=== PATIENT | male | born 1980 | race Caucasian/White ===

== ENCOUNTER 2019-08-01 13:39 | Outpatient (CLI) | payer BC, SELFPAY ==
--- NOTE | ~2019-08-01 | CT_ITS ---
CORRECTED REPORT Description changed to CT soft tissue neck wo con [id number] EXAMINATION: CT soft tissue neck wo con DATE: 08/01/2019 14:23 INDICATION: Localized swelling, mass, or lump unspecified. TECHNIQUE: Computed tomography (CT) of the neck was performed without intravenous contrast. Automated exposure control and iterative reconstruction technique were employed. The dose-length product was 494.35 mGy-cm. COMPARISON: None FINDINGS: Calcified mediastinal lymph nodes are consistent with old granulomatous disease. There are no pathologically enlarged lymph nodes. The parotid glands are larger than average bilaterally, likely a normal variant. No abnormal mass or inflammation. There is no sialolith. The paranasal sinuses are clear. The mastoid air cells are normal. There is mild cervical spondylosis. IMPRESSION: 1. No abnormal mass or lymphadenopathy. Reviewed, dictated and finalized at location A. MTDD
== END 2019-08-01 13:40 | disposition home or self-care (01) ==
LOC: ANHIMG 13:45
PROVIDERS: PCP Internal Medicine; Visit Provider Nurse Practitioner
DX: R22.9 Localized swelling, mass and lump, unspecified (principal)
CPT/HCPCS: 70490; 71250

== ENCOUNTER 2019-08-01 13:50 | Outpatient (CLI) | payer BC, SELFPAY ==
--- NOTE | ~2019-08-01 | CT_ITS ---
EXAMINATION: CT abdomen pelvis wo con DATE: 08/01/2019 14:22 INDICATION: Chronic prostatitis TECHNIQUE: Computed tomography (CT) of the abdomen and pelvis was performed without intravenous contr ast. The dose-length product was 607.40 mGy-cm. Automated exposure control and iterative reconstructi on technique were employed. COMPARISON: None. FINDINGS: Lung bases are unremarkable. No significant pleural or pericardial effusion. There are mult iple enlarged mesenteric and retroperitoneal lymph nodes. The liver and, pancreas, adrenal glands and kidneys are unremarkable. Spleen is enlarged. Prostate gland is enlarged. Bladder is normal. Nonobst ructive bowel gas pattern. Diverticulosis without evidence for diverticulitis. Normal appendix. No fr ee air or free fluid. Mild lower lumbar spondylosis. No acute osseous abnormality. IMPRESSION: 1. Enlarged mesenteric and retroperitoneal lymphadenopathy, nonspecific. These may be reactive althou gh other considerations such as lymphoma or metastatic disease should be considered. 2: Splenomegaly. 3: Enlarged prostate gland. Reviewed, dictated and finalized at location A. IMPRESSION: 1. Enlarged mesenteric and retroperitoneal lymphadenopathy, nonspecific. These may be reactive although other considerations such as lymphoma or metastatic di sease should be considered. 2: Splenomegaly. 3: Enlarged prostate gland.
== END 2019-08-01 13:51 | disposition home or self-care (01) ==
LOC: ANHIMG 13:52
PROVIDERS: PCP Internal Medicine; Visit Provider Urology
DX: N41.1 Chronic prostatitis (principal); R59.0 Localized enlarged lymph nodes; R16.1 Splenomegaly, not elsewhere classified; N40.0 Benign prostatic hyperplasia without lower urinary tract symptoms
CPT/HCPCS: 74176

== ENCOUNTER → 2020-01-06 13:36 | Outpatient (CLI) | payer OTHER, SELFPAY ==
--- NOTE | ~2020-01-06 | XR_ITS ---
EXAMINATION: XR chest 2V EXAM DATE: 01/06/2020 14:16 INDICATION: Splenomegaly. TECHNIQUE: Frontal and lateral projections of the chest obtained and reviewed. There is no prior gretel dy for comparison. FINDINGS: Right middle lobe calcified granuloma. The lungs are otherwise clear. There are no pleural effusions. The cardiomediastinal silhouette is within normal limits. There is no pneumothorax susp ected. The bones and soft tissues are unremarkable. IMPRESSION: No acute cardiopulmonary findings. Reviewed, dictated and finalized at location B.
== END ==
PROVIDERS: PCP Internal Medicine; Visit Provider Internal Medicine
DX: R16.1 Splenomegaly, not elsewhere classified (principal)
CPT/HCPCS: 71046

== ENCOUNTER → 2020-03-09 12:38 | Outpatient (CLI) | payer OTHER, SELFPAY ==
--- NOTE | ~2020-03-09 | CT_ITS ---
EXAMINATION: CT abdomen pelvis w con DATE: 03/09/2020 13:33 INDICATION: Abdominal lymphadenopathy. Splenomegaly. TECHNIQUE: Computed tomography (CT) of the abdomen and pelvis was performed with 100 mL Omnipaque-350 intravenous contrast. Automated exposure control and iterative reconstruction technique were employe d. The dose-length product was 717.60 mGy-cm. COMPARISON: 08/01/2019 FINDINGS: Lung bases are clear. Heart size is normal. No pericardial or pleural effusion. Liver, gallbladder, p ancreas, bilateral adrenal glands and kidneys are normal. No significant change in splenomegaly with spleen measuring 15.0 cm in maximal length, previously 15.3 cm. Bowels including the appendix are nor mal. Bladder is normal. No free intraperitoneal gas or fluid. Interval decrease in size of the previo usly mildly enlarged mesenteric lymph nodes which were likely reactive. No pathologically enlarged ab dominal or pelvic lymphadenopathy. Tiny fat-containing umbilical hernia. Transitional thoracolumbar a nd lumbosacral segments. IMPRESSION: 1. Resolution of prior mild mesenteric and retroperitoneal lymphadenopathy which is likely reactive. 2. Unchanged nonspecific mild splenomegaly. Reviewed, dictated and finalized at location A. IMPRESSION: 1. Resolution of prior mild mesenteric and retroperitoneal lymphadenopathy whic h is likely reactive. 2. Unchanged nonspecific mild splenomegaly.
== END ==
PROVIDERS: Visit Provider Internal Medicine Hematology & Oncology
DX: R59.0 Localized enlarged lymph nodes (principal); R16.1 Splenomegaly, not elsewhere classified
CPT/HCPCS: 74177; Q9967

== ENCOUNTER 2020-03-11 09:30 | Outpatient (CLI) | payer OTHER, SELFPAY ==
[2020-03-11 09:56] LABS: Basophils Percent Auto 0.4 % (0.2-1.2); Eosinophils Absolute Auto 0.1 K/mm3 (0-0.3); Eosinophils Percent Auto 2.7 % (0-4.4); Hematocrit 43.8 % (42.0-52.0); Hemoglobin 14.7 g/dL (14.0-18.0); Immature Granulocyte Absolute 0.02 K/mm3 (0.00-0.031); Immature Granulocyte Percent A 0.4 % (0-0.5); Immature Platelet Fraction Pct 2.2 % (0.9-11.2); Lymphocytes Absolute Auto 1.04 K/mm3 (0.9-3.2); Lymphocytes Percent Auto 23.1 % (18.3-44.2); Mean Corpuscular HGB Conc 33.6 g/dl (32-36); Mean Corpuscular Hemoglobin 28.1 pg (26-34); Mean Corpuscular Volume 83.7 fl (80-100); Mean Platelet Volume 9.4 fl (7.4-10.4); Monocytes Absolute Auto 0.4 K/mm3 (0.1-0.6); Monocytes Percent Auto 9.1 % (2.6-8.5); Neutrophils Absolute Auto 2.9 K/mm3 (1.3-6.7); Neutrophils Percent Auto 64.3 % (45.5-73.1); Platelet Count Result 134 k/mm3 (150-375); Red Blood Count 5.23 M/mm3 (4.6-6.20); Red Cell Distribution Width 12.7 % (11.5-14.5); White Blood Count 4.5 K/mm3 (4.5-10.0)
[2020-03-11 11:19] LABS: Alanine Aminotransferase 31 U/L (4-50); Albumin Level 4.3 g/dL (3.5-5.1); Alkaline Phosphatase 44 U/L (38-126); Anion Gap 7 mmol/L (8-16); Aspartate Amino Transferase 28 U/L (17-59); Bilirubin,Total 0.5 mg/dL (0.2-1.3); Blood Urea Nitrogen 15 mg/dL (9-20); CRP < 0.5 mg/dL (<1.0); Calcium 9.4 mg/dL (8.4-10.2); Carbon Dioxide 29 mmol/L (22-30); Chloride 104 mmol/L (98-107); Estimated Glomerular Filt Rate > 60; Glucose 89 mg/dL (75-110); Lactate Dehydrogenase 355 U/L (313-618); Potassium 4.4 mmol/L (3.4-5.0); Sodium 140 mmol/L (137-145)
[2020-03-11 11:42] LABS: Erythrocyte Sedimentation Rate 6 mm/hr (0-20)
[2020-03-15 20:32] LABS: EBV Nuclear Ab Interpretation Past; EBV Virus Capsid Ag IgG Ab >750.00 U/mL (<18.00); EBV Virus Capsid Ag IgM Ab <36.00 U/mL (<36.00)
== END 2020-03-11 09:31 | disposition home or self-care (01) ==
LOC: ANHLAB 09:32
PROVIDERS: Visit Provider Internal Medicine Hematology & Oncology
DX: R59.0 Localized enlarged lymph nodes (principal)
CPT/HCPCS: 36415; 80053; 83615; 85025; 85055; 85652; 86140; 86664; 86665; 88184

== ENCOUNTER 2020-09-10 11:39 | Outpatient (CLI) | payer OTHER, SELFPAY ==
[2020-09-10 11:54] LABS: Basophils Percent Auto 0.2 % (0.2-1.2); Eosinophils Absolute Auto 0.1 K/mm3 (0-0.3); Eosinophils Percent Auto 2.2 % (0-4.4); Hematocrit 45.2 % (42.0-52.0); Hemoglobin 15.3 g/dL (14.0-18.0); Immature Granulocyte Absolute 0.02 K/mm3 (0.00-0.031); Immature Granulocyte Percent A 0.4 % (0-0.5); Lymphocytes Absolute Auto 1.18 K/mm3 (0.9-3.2); Lymphocytes Percent Auto 25.4 % (18.3-44.2); Mean Corpuscular HGB Conc 33.8 g/dl (32-36); Mean Corpuscular Hemoglobin 28.2 pg (26-34); Mean Corpuscular Volume 83.2 fl (80-100); Mean Platelet Volume 9.2 fl (7.4-10.4); Monocytes Absolute Auto 0.3 K/mm3 (0.1-0.6); Monocytes Percent Auto 7.1 % (2.6-8.5); Neutrophils Percent Auto 64.7 % (45.5-73.1); Platelet Count Result 145 k/mm3 (150-375); Red Blood Count 5.43 M/mm3 (4.6-6.20); Red Cell Distribution Width 12.8 % (11.5-14.5); White Blood Count 4.6 K/mm3 (4.5-10.0)
[2020-09-10 11:55] LABS: Blood Urea Nitrogen 15 mg/dL (8-26); Carbon Dioxide 29 mmol/L (22-30); Chloride 101 mmol/L (98-109); Estimated Glomerular Filt Rate > 60; Glucose 81 mg/dL (70-105); Potassium 3.8 mmol/L (3.5-4.9); Sodium 140 mmol/L (138-146)
[2020-09-10 16:42] LABS: Potassium 4.2 mmol/L (3.4-5.0)
[2020-09-10 16:46] LABS: Alanine Aminotransferase 41 U/L (4-50); Albumin Level 4.5 g/dL (3.5-5.1); Alkaline Phosphatase 49 U/L (38-126); Anion Gap 6 mmol/L (8-16); Aspartate Amino Transferase 30 U/L (17-59); Bilirubin,Total 0.4 mg/dL (0.2-1.3); Blood Urea Nitrogen 16 mg/dL (9-20); Calcium 9.3 mg/dL (8.4-10.2); Carbon Dioxide 28 mmol/L (22-30); Chloride 104 mmol/L (98-107); Estimated Glomerular Filt Rate > 60; Glucose 87 mg/dL (75-110); Sodium 138 mmol/L (137-145)
== END 2020-09-10 11:40 | disposition home or self-care (01) ==
LOC: ANHLAB 11:41
PROVIDERS: Visit Provider Internal Medicine Hematology & Oncology
DX: R16.1 Splenomegaly, not elsewhere classified (principal); R59.0 Localized enlarged lymph nodes
CPT/HCPCS: 36415; 80048; 80053; 85025; 85055

== ENCOUNTER 2020-10-01 15:02 | Emergency (ER) | payer OTHER, SELFPAY ==
--- NOTE | ~2020-10-01 | XR_ITS ---
EXAMINATION: XR chest 1V portable EXAM DATE: 10/01/2020 17:33 INDICATION: Hemorrhoids 4 days, fever. TECHNIQUE: Portable AP frontal chest x-ray was obtained. Comparison is made to prior examination from 01/06/2020. FINDINGS: The lungs are clear. There are no pleural effusions. The cardiomediastinal silhouette is within normal limits. There is no pneumothorax suspected. The bones and soft tissues are unremarkab le. IMPRESSION: Normal chest x-ray exam. Reviewed, dictated and finalized at location A. IMPRESSION: Normal chest x-ray exam.
[2020-10-01 15:18] VITALS: BP 134/85; PULSE 114; RESP 20; TEMP 37.3; O2SAT 99
[2020-10-01 15:53] LABS: Basophils Percent Auto 0.2 % (0.2-1.2); Eosinophils Absolute Auto 0.1 K/mm3 (0-0.3); Eosinophils Percent Auto 0.5 % (0-4.4); Hematocrit 41.6 % (42.0-52.0); Hemoglobin 14.1 g/dL (14.0-18.0); Immature Granulocyte Absolute 0.05 K/mm3 (0.00-0.031); Immature Granulocyte Percent A 0.5 % (0-0.5); Immature Platelet Fraction Pct 1.9 % (0.9-11.2); Lymphocytes Absolute Auto 0.77 K/mm3 (0.9-3.2); Mean Corpuscular HGB Conc 33.9 g/dl (32-36); Mean Corpuscular Hemoglobin 28.5 pg (26-34); Mean Corpuscular Volume 84.2 fl (80-100); Mean Platelet Volume 9.7 fl (7.4-10.4); Monocytes Absolute Auto 0.6 K/mm3 (0.1-0.6); Monocytes Percent Auto 6.4 % (2.6-8.5); Neutrophils Absolute Auto 8.1 K/mm3 (1.3-6.7); Neutrophils Percent Auto 84.4 % (45.5-73.1); Platelet Count Result 127 k/mm3 (150-375); Red Blood Count 4.94 M/mm3 (4.6-6.20); Red Cell Distribution Width 12.4 % (11.5-14.5); White Blood Count 9.6 K/mm3 (4.5-10.0)
[2020-10-01 15:57] LABS: Add Urine Microscopic? YES; Appearance Urine Cloudy (Clear); Bilirubin Urine Negative (Negative); Blood Urine Negative (Negative); Color Urine Amber (Yellow); Glucose Urine UA Negative (Negative); Ketones Urine 1+ mg/dL (Negative); Leukocyte Esterase Ur Negative LEU/UL (Negative); Mucus Urine Few /lpf; Nitrate Urine Negative (Negative); Protein Urine 1+ mg/dL (Negative); RBC Urine 0-2 /hpf (0-2); Specific Grav Ur 1.026 (1.001-1.035); Urobilinogen Urine Negative mg/dL (<2.0); WBC Urine 0-3 /hpf
[2020-10-01 16:01] LABS: Anion Gap 6 mmol/L (8-16); Blood Urea Nitrogen 15 mg/dL (9-20); Calcium 9.6 mg/dL (8.4-10.2); Carbon Dioxide 27 mmol/L (22-30); Chloride 103 mmol/L (98-107); Estimated CRCL calculation 81 ml/min; Estimated Glomerular Filt Rate > 60; Glucose 135 mg/dL (75-110); Potassium 3.9 mmol/L (3.4-5.0); Sodium 136 mmol/L (137-145)
--- NOTE | 2020-10-01 17:23 | ED.FEVER ---
HPI - Fever General Chief Complaint: Fever Stated Complaint: HEMORRHOID/ FEVER Time Seen by Provider: 10/01/20 17:05 Source: patient Mode of arrival: ambulatory Limitations: no limitations History of Present Illness HPI Narrative: This is a 40-year-old male that presents the emergency department for hemorrhoid present over the last couple of days. Does report history of hemorrhoids in the past. Reports he recently stopped taking his Benefiber supplement which usually helps with his constipation. Also reports he had a fever today. Reports a mild headache. Denies sore throat, cough, congestion, vomiting, or dysuria. Related Data Allergies Allergy/AdvReac Type Severity Reaction Status Date / Time cefaclor Allergy Unknown Rash Verified 12/31/19 07:37 Review of Systems Review of Systems: Narrative: CONSTITUTIONAL: Denies fever ENT: Denies rhinorrhea, congestion, sore throat RESPIRATORY: Denies cough or dyspnea. GASTROINTESTINAL: Denies vomiting GENITOURINARY: Denies dysuria All systems reviewed & are unremarkable except as noted in HPI and below PMFSH Past Medical History Medical History (Updated 10/01/20 @ 17:45 by Latesha Ahmadi PA-C) Appendix injury Back pain Hemorrhoids History of torn meniscus of left knee Repair 2002 Shingles 2013 Surgical History Surgical History (Updated 07/29/19 @ 07:08 by Cristiane Yanes [facility]) [place] teeth removed 1999 Family History Family History (Updated 06/14/18 @ 09:20 by DOCTOR UNKNOWN) Mother Patient's mother is in good health Father Family history of malignant neoplasm of thyroid Social History Social History (Updated 12/04/19 @ 07:48 by Va Robbins [facility]) Smoking status: Never smoker Alcohol intake: current Exam Narrative: Exam Narrative: GENERAL: Well-appearing, well-nourished, and in no acute distress. HEAD: Normocephalic, atraumatic. EYES: EOMI. ENT: Nares clear, no rhinorrhea or epistaxis. Mucous membranes moist. Oropharynx without tonsillar hypertrophy exudate or other lesions. Bilateral TMs pearly perez non-bulging NECK: Supple. No adenopathy or masses. CHEST: Clear to auscultation. No respiratory distress. No wheezes rales or rhonchi HEART: Regular rate and rhythm. No murmur heard. Normal peripheral pulses. ABDOMEN: Soft, nontender, nondistended, normal active bowel sounds. EXTREMITIES: Normal range of motion. No edema. SKIN: Warm, dry, no rash. NEURO: No focal deficits. Alert and oriented x3. PSYCH: Normal mood and affect RECTAL: External hemorrhoid present, nonthrombosed. No active bleeding Course Vital Signs Vital signs: Vital Signs Temperature 99.1 F 10/01/20 15:18 Pulse Rate 114 H 10/01/20 15:18 Respiratory Rate 20 10/01/20 15:18 Blood Pressure 134/85 10/01/20 15:18 Pulse Oximetry 99 10/01/20 15:18 Temperature 99.1 F 10/01/20 15:18 Pulse Rate 114 H 10/01/20 15:18 Respiratory Rate 20 10/01/20 15:18 Blood Pressure 134/85 10/01/20 15:18 Pulse Oximetry 99 10/01/20 15:18 MDM - Fever MDM Narrative Medical decision making narrative: Patient presents to the ER for hemorrhoid present over the last couple of days. Also reporting fever without any other localizing infectious symptoms. He is afebrile and nontoxic-appearing. CBC is without leukocytosis. Metabolic panel without concerning findings. UA without evidence of infection. Influenza screen is negative. Chest x-ray without acute findings. SARS-CoV-2 was sent. Patient does have an external hemorrhoid, which is nonthrombosed and is not actively bleeding. He was instructed on care of such and will be started on hemorrhoidal cream. He is stable and felt appropriate for further outpatient evaluation. He was given warnings to return to the ER Lab Data Attestation: I reviewed the patient's lab results. Result diagrams: 10/01/20 15:30 10/01/20 15:30 Labs: Lab Results 10/01/20 10/01/20 10/01/20 Range/Units 15:3
[2020-10-02 19:36] LABS: SARS-CoV-2 RNA PCR Negative
== END 2020-10-01 18:00 | disposition home or self-care (01) ==
PROVIDERS: Physician Assistant; Emergency Provider Emergency Medicine; PCP Internal Medicine
DX: K64.9 Unspecified hemorrhoids (principal); Z20.822 Contact with and (suspected) exposure to COVID-19
CPT/HCPCS: 36415; 71045; 80048; 81001; 85025; 85055; 87804; 99283; C9803; U0003; U0005

== ENCOUNTER 2022-04-25 08:18 | Outpatient (CLI) | payer OTHER, SELFPAY ==
[2022-04-25 08:32] LABS: Basophils Percent Auto 0.3 % (0.2-1.2); Eosinophils Absolute Auto 0.1 K/mm3 (0-0.3); Eosinophils Percent Auto 2.2 % (0-4.4); Hematocrit 42.2 % (42.0-52.0); Hemoglobin 14.2 g/dL (14.0-18.0); Immature Granulocyte Absolute 0.01 K/mm3 (0.00-0.031); Immature Granulocyte Percent A 0.3 % (0-0.5); Immature Platelet Fraction Pct 2.6 % (0.9-11.2); Lymphocytes Percent Auto 31.7 % (18.3-44.2); Mean Corpuscular HGB Conc 33.6 g/dl (32-36); Mean Corpuscular Volume 83.1 fl (80-100); Mean Platelet Volume 9.2 fl (7.4-10.4); Monocytes Absolute Auto 0.4 K/mm3 (0.1-0.6); Monocytes Percent Auto 12.1 % (2.6-8.5); Neutrophils Absolute Auto 1.7 K/mm3 (1.3-6.7); Neutrophils Percent Auto 53.4 % (45.5-73.1); Platelet Count Result 117 k/mm3 (150-375); Red Blood Count 5.08 M/mm3 (4.6-6.20); Red Cell Distribution Width 12.8 % (11.5-14.5); White Blood Count 3.2 K/mm3 (4.5-10.0)
[2022-04-25 09:44] LABS: Alanine Aminotransferase 28 U/L (6-50); Albumin Level 4.4 g/dL (3.5-5.1); Alkaline Phosphatase 51 U/L (38-126); Anion Gap 8 mmol/L (8-16); Aspartate Amino Transferase 24 U/L (17-59); Bilirubin,Total 0.4 mg/dL (0.2-1.3); Blood Urea Nitrogen 16 mg/dL (9-20); Calcium 8.7 mg/dL (8.4-10.2); Carbon Dioxide 27 mmol/L (22-30); Chloride 106 mmol/L (98-107); Cholesterol 164 mg/dL (0-200); Estimated Glomerular Filt Rate > 60; Glucose 96 mg/dL (65-110); HDL Direct 55 mg/dL; Potassium 4.3 mmol/L (3.4-5.0); Sodium 141 mmol/L (137-145); Triglycerides 85 mg/dL (<150)
[2022-04-25 09:55] LABS: LDL Cholesterol Direct 79 mg/dL
== END 2022-04-25 08:19 | disposition home or self-care (01) ==
LOC: ANHLAB 08:20
PROVIDERS: PCP Internal Medicine; Visit Provider Clinical Nurse Specialist
DX: Z13.228 Encounter for screening for other metabolic disorders (principal); Z13.220 Encounter for screening for lipoid disorders
CPT/HCPCS: 36415; 80053; 80061; 85025; 85055

== ENCOUNTER → 2022-04-28 08:53 | Outpatient (CLI) | payer OTHER, SELFPAY ==
--- NOTE | ~2022-04-28 | US_ITS ---
US abdomen limited 04/28/2022 09:05 Indication: Thrombocytopenia and leukopenia. History of splenomegaly. Procedure: High-resolution Limited ultrasound of the left upper abdomen Comparison: CT dated 03/09/2020 Findings: Spleen is within normal limits measuring 11.7 cm. No focal splenic masses. Left renal echot exture is normal without hydronephrosis, mass or stone. Left kidney measures 10.9 cm. Impression: 1: Normal spleen. Reviewed, dictated and finalized at location A. RATOR OPERATOR STRAIGHT BEVEL GEAR Impression: 1: Normal spleen.
== END ==
PROVIDERS: PCP Internal Medicine; Visit Provider Nurse Practitioner
DX: D69.6 Thrombocytopenia, unspecified (principal); D72.819 Decreased white blood cell count, unspecified
CPT/HCPCS: 76705

== ENCOUNTER 2022-06-03 10:44 | Outpatient (CLI) | payer OTHER, SELFPAY ==
[2022-06-03 10:53] LABS: Basophils Percent Auto 0.2 % (0.2-1.2); Eosinophils Absolute Auto 0.1 K/mm3 (0-0.3); Hemoglobin 15.2 g/dL (14.0-18.0); Immature Granulocyte Absolute 0.02 K/mm3 (0.00-0.031); Immature Granulocyte Percent A 0.5 % (0-0.5); Lymphocytes Absolute Auto 1.28 K/mm3 (0.9-3.2); Lymphocytes Percent Auto 31.8 % (18.3-44.2); Mean Corpuscular HGB Conc 34.5 g/dl (32-36); Mean Corpuscular Hemoglobin 28.5 pg (26-34); Mean Corpuscular Volume 82.4 fl (80-100); Mean Platelet Volume 8.9 fl (7.4-10.4); Monocytes Absolute Auto 0.4 K/mm3 (0.1-0.6); Monocytes Percent Auto 10.9 % (2.6-8.5); Neutrophils Absolute Auto 2.2 K/mm3 (1.3-6.7); Neutrophils Percent Auto 54.6 % (45.5-73.1); Platelet Count Result 126 k/mm3 (150-375); Red Blood Count 5.34 M/mm3 (4.6-6.20); Red Cell Distribution Width 12.9 % (11.5-14.5)
[2022-06-03 11:02] LABS: Blood Urea Nitrogen 13 mg/dL (8-26); Carbon Dioxide 26 mmol/L (22-30); Chloride 104 mmol/L (98-109); Estimated Glomerular Filt Rate > 60; Glucose 90 mg/dL (70-105); Ionized Calcium (POC) 1.24 mmol/L (1.11-1.31); Potassium 4.1 mmol/L (3.5-4.9); Sodium 142 mmol/L (138-146)
[2022-06-03 15:21] LABS: Alanine Aminotransferase 29 U/L (6-50); Albumin Level 4.6 g/dL (3.5-5.1); Alkaline Phosphatase 51 U/L (38-126); Anion Gap 5 mmol/L (8-16); Aspartate Amino Transferase 28 U/L (17-59); Bilirubin,Total 0.7 mg/dL (0.2-1.3); Blood Urea Nitrogen 13 mg/dL (9-20); Calcium 9.3 mg/dL (8.4-10.2); Carbon Dioxide 29 mmol/L (22-30); Chloride 103 mmol/L (98-107); Estimated Glomerular Filt Rate > 60; Glucose 86 mg/dL (65-110); Potassium 4.2 mmol/L (3.4-5.0); Sodium 137 mmol/L (137-145)
== END 2022-06-03 10:45 | disposition home or self-care (01) ==
LOC: ANHLAB 10:45
PROVIDERS: PCP Internal Medicine; Visit Provider Internal Medicine Hematology & Oncology
DX: R16.1 Splenomegaly, not elsewhere classified (principal); R59.0 Localized enlarged lymph nodes
CPT/HCPCS: 36415; 80047; 80053; 85025

== ENCOUNTER 2022-06-20 08:31 | Outpatient (CLI) | payer OTHER, SELFPAY ==
--- NOTE | ~2022-06-20 | CT_ITS ---
EXAMINATION: CT abdomen pelvis w con INDICATION: Retroperitoneal lymphadenopathy TECHNIQUE: Computed tomographic images of the abdomen and pelvis were obtained after the administrati on of 100 cc of Omnipaque 350 intravenous contrast. The dose-length product (DLP) was 404.17 mGy-cm. Automated exposure control and iterative reconstruction technique were employed. COMPARISON: 03/09/2020 FINDINGS: The lung bases are clear. The heart size is normal. There is a 5 mm cyst of the right hepat ic lobe. There is mild chronic splenomegaly with slight decrease in size of the spleen. The pancreas, gallbladder, and adrenal glands are normal. The left kidney is unremarkable. There is a 4 mm cyst of the right kidney. No pathologically enlarged abdominal or pelvic lymph nodes are identified. There i s no free intraperitoneal gas or evidence of bowel obstruction. The appendix is normal. There is a ti ny umbilical hernia containing fat. IMPRESSION: 1. No lymphadenopathy. 2. Persistent mild splenomegaly with slight decrease in size of the spleen, nonspecific. Reviewed, dictated and finalized at location B. NE BOSS IMPRESSION: 1. No lymphadenopathy. 2. Persistent mild splenomegaly with slight decrease in size of the spleen, non specific.
== END 2022-06-20 08:32 | disposition home or self-care (01) ==
PROVIDERS: PCP Internal Medicine; Visit Provider Internal Medicine Hematology & Oncology
DX: R59.0 Localized enlarged lymph nodes (principal)
CPT/HCPCS: 74177; Q9967

== ENCOUNTER 2023-08-03 10:08 | Outpatient (CLI) | payer OTHER, SELFPAY ==
[2023-08-03 10:21] LABS: Basophils Percent Auto 0.3 % (0.2-1.2); Eosinophils Absolute Auto 0.1 K/mm3 (0-0.3); Eosinophils Percent Auto 2.4 % (0-4.4); Hematocrit 46.7 % (42.0-52.0); Hemoglobin 15.8 g/dL (14.0-18.0); Immature Granulocyte Absolute 0.01 K/mm3 (0.00-0.031); Immature Granulocyte Percent A 0.3 % (0-0.5); Lymphocytes Absolute Auto 0.95 K/mm3 (0.9-3.2); Lymphocytes Percent Auto 25.2 % (18.3-44.2); Mean Corpuscular HGB Conc 33.8 g/dl (32-36); Mean Corpuscular Hemoglobin 28.5 pg (26-34); Mean Corpuscular Volume 84.3 fl (80-100); Mean Platelet Volume 8.9 fl (7.4-10.4); Monocytes Absolute Auto 0.4 K/mm3 (0.1-0.6); Monocytes Percent Auto 9.5 % (2.6-8.5); Neutrophils Absolute Auto 2.4 K/mm3 (1.3-6.7); Neutrophils Percent Auto 62.3 % (45.5-73.1); Platelet Count Result 129 k/mm3 (150-375); Red Blood Count 5.54 M/mm3 (4.6-6.20); Red Cell Distribution Width 12.8 % (11.5-14.5); White Blood Count 3.8 K/mm3 (4.5-10.0)
[2023-08-03 10:26] LABS: Blood Urea Nitrogen 21 mg/dL (8-26); Carbon Dioxide 27 mmol/L (22-30); Chloride 102 mmol/L (98-109); Estimated Glomerular Filt Rate > 60; Glucose 87 mg/dL (70-105); Ionized Calcium (POC) 1.27 mmol/L (1.11-1.31); Potassium 4.4 mmol/L (3.5-4.9); Sodium 140 mmol/L (138-146)
[2023-08-03 15:49] LABS: Alanine Aminotransferase 39 U/L (6-50); Albumin Level 4.6 g/dL (3.5-5.1); Alkaline Phosphatase 56 U/L (38-126); Anion Gap 6 mmol/L (8-16); Aspartate Amino Transferase 30 U/L (17-59); Bilirubin,Total 1.1 mg/dL (0.2-1.3); Blood Urea Nitrogen 21 mg/dL (9-20); Calcium 9.8 mg/dL (8.4-10.2); Carbon Dioxide 28 mmol/L (22-30); Chloride 104 mmol/L (98-107); Estimated Glomerular Filt Rate > 60; Glucose 88 mg/dL (65-110); Potassium 4.5 mmol/L (3.4-5.0); Sodium 138 mmol/L (137-145)
== END 2023-08-03 10:09 | disposition home or self-care (01) ==
LOC: ANHLAB 10:10
PROVIDERS: PCP Internal Medicine; Visit Provider Internal Medicine Hematology & Oncology
DX: R59.0 Localized enlarged lymph nodes (principal)
CPT/HCPCS: 36415; 80047; 80053; 85025

== ENCOUNTER 2024-05-24 10:51 | Emergency (ER) | payer OTHER, SELFPAY ==
[2024-05-24 11:07] VITALS: BP 122/65; PULSE 68; RESP 16; TEMP 36.4; O2SAT 100
--- NOTE | 2024-05-24 11:17 | ED.URI ---
HPI - URI/Sore Throat General Chief Complaint: Upper Respiratory Infection Stated Complaint: cold symptoms Time Seen by Provider: 05/24/24 11:17 Source: patient Mode of arrival: ambulatory Limitations: no limitations History of Present Illness HPI Narrative: 44-year-old male presents with complaint of chest congestion, cough for the past 3 weeks. Reports intermittent shortness of breath with exertion. Cough worse at night. Has tried [id number] medications without relief of symptoms. Patient states he feels well. Concerned he may have pneumonia because cough not improving. All systems reviewed and negative except as noted above. Related Data Allergies Allergy/AdvReac Type Severity Reaction Status Date / Time cefaclor Allergy Unknown Rash Verified 05/24/24 11:06 amoxicillin (From Augmentin) Allergy Rash Verified 05/24/24 11:06 clavulanic acid (From Allergy Rash Verified 05/24/24 11:06 Augmentin) Review of Systems Review of Systems: CONSTITUTIONAL: Denies fever, chills, or sweats. Reports fatigue. EYES: Denies visual changes, redness, or discharge. ENT: Reports rhinorrhea, congestion, sore throat, or otalgia. CARDIOVASCULAR: Denies chest pain, palpitations, or edema. RESPIRATORY: Reports cough and dyspnea with exertion. GASTROINTESTINAL: Denies abdominal pain, nausea, vomiting, or diarrhea. GENITOURINARY: Denies dysuria or hematuria. SKIN: Denies rash or itching. MUSCULOSKELETAL: Denies back pain, joint pain, or myalgia. NEUROLOGIC: Denies headache, numbness, or weakness. PSYCHIATRIC: Denies anxiety or depression. All other systems reviewed are negative, except as documented in HPI. [facility] Past Medical History Medical History (Updated 05/24/24 @ 11:25 by Edwina Caraballo NP) Maira-rectal abscess Hemorrhoids Back pain Shingles 2014 Hemorrhoids Appendix injury History of torn meniscus of left knee Repair 2002 Surgical History Surgical History [place] teeth removed 1999 Family History Family History Mother Patient's mother is in good health Father Family history of malignant neoplasm of thyroid Social History Social History (Updated 04/20/22 @ 08:55 by Joellen Durant CMA) Smoking status: Never smoker Alcohol intake: current Alcohol use details: occasionally Lack of Transportation: No Lack of Food: Never True Current Housing: I Have Housing Concerned About Future Housing: No Difficulty Paying Gas/Electric Bills: No Difficulty Paying for Meds: No Currently Unemployed: No Education: Bachelor's Degree Difficulty w/ Childcare or Family Care: No Comments At time of signature, agree with nursing past medical, surgical, social and family history. There is no relevant family history pertinent to the presenting complaint. Exam Narrative: GENERAL: This is a well-nourished, well-developed patient, in no apparent distress. HEAD: normocephalic, atraumatic. EYES: PERRL. Sclera clear/white. Vision is grossly intact. EARS: External ears normal, auditory canals clear and without drainage, TMs normal without perforation. Hearing grossly intact. NOSE: External nose normal with no obvious nasal discharge, nares without redness, no rhinorrhea. THROAT: Mucous membranes moist, posterior pharynx clear. NECK: Neck supple, non-tender without lymphadenopathy, masses or thyromegaly. CARDIOVASCULAR: Regular rate and rhythm without murmurs, gallops, or rubs. RESPIRATORY: Mildly decreased throughout all lung alvarez. Breath sounds equal bilaterally. No wheezes, rales, or rhonchi. SKIN: warm, Dry, intact with no suspicious lesions or rash, good texture and turgor. NEURO: awake, alert, and oriented to person, place and time. There were no obvious focal neurologic abnormalities. EXTREMITIES: No joint tenderness, effusion, or edema noted. Course Course Level of Care: Express Care Visit Vital Signs Vital signs: Vital Signs Temperature 36.4 C L 05/24/24 11:07 Pulse Rate 68 05/24/24 11:07 Respiratory Rate 16 05/24/24 11:07 Blood Pressure 122/65 05/24/24 11:07 Pulse Oximetry 100 05/24/24 11:07 Temperature 36.4 C L 05/24/24 11:07 Pulse Rate 68 05/24/24 11:07 Respiratory Rate 16 05/24/24 11:07 Blood Pressure 122/65 05/24/24 11:07 Pulse Oximetry 100 05/24/24 11:07 Reviewed MDM - URI/Sore Throat MDM Narrative Medical decision making narrative: Will treat patient with antibiotic and prednisone due to duration of symptoms and exam findings. Did offer patient a chest x-ray today but he did not feel was necessary. Patient is aware of diagnosis, understands and agrees to treatment plan. Anticipatory guidance given. Patient agrees to follow-up as directed and is aware of reasons to seek care at the emergency department. Portions of this record may have been created with voice recognition software Discharge Plan Discharge Clinical Impression: Acute bronchitis Patient Disposition: Home, Self-Care Condition: Stable Instructions: Antibiotic Form, Acute Bronchitis (ED) Additional Instructions: Take medications as prescribed. Take [id number] Mucinex as directed on packaging. Drink at least 64 oz of water a day. Place cool mist humidifier in bedroom where you sleep. Follow-up with your primary care physician if symptoms are not improving. Patient Language: Telugu Prescriptions: New azithromycin 250 mg tablet See Rx Instructions .ROUTE .COMPLEX Qty: 6 0RF Rx Instructions: For 250 mg dose pack: take 500 mg today (day 1), then 250 mg for 4 days (days 2-5) prednisone 20 mg tablet 40 mg PO DAILY 5 Days Qty: 10 0RF albuterol sulfate 90 mcg/actuation HFA aerosol inhaler 2 puff inhalation Q4-6H PRN (Reason: shortness of breath or wheezing) Qty: 8.5 0RF (DME) Aerochamber Plus Z Stat Spacer See Rx Instructions .Route Qty: 1 0RF Rx Instructions: As directed benzonatate 200 mg capsule 200 mg PO TID PRN (Reason: cough) Qty: 20 0RF Follow-up/Referrals: Tomi Domínguez DO [Primary Care Provider] - Time of Disposition: 11:25
== END 2024-05-24 11:32 | disposition home or self-care (01) ==
PROVIDERS: Emergency Provider Nurse Practitioner Family; PCP Internal Medicine
DX: J20.9 Acute bronchitis, unspecified (principal)
CPT/HCPCS: 99213; G0463

== ENCOUNTER 2024-08-05 10:07 | Outpatient (CLI) | payer OTHER, SELFPAY ==
[2024-08-05 10:26] LABS: Basophils Percent Auto 0.4 % (0.2-1.2); Eosinophils Absolute Auto 0.1 K/mm3 (0-0.3); Eosinophils Percent Auto 2.2 % (0-4.4); Hematocrit 44.8 % (42.0-52.0); Hemoglobin 15.2 g/dL (14.0-18.0); Immature Granulocyte Absolute 0.02 K/mm3 (0.00-0.031); Immature Granulocyte Percent A 0.4 % (0-0.5); Immature Platelet Fraction Pct 2.5 % (0.9-11.2); Lymphocytes Percent Auto 24.7 % (18.3-44.2); Mean Corpuscular HGB Conc 33.9 g/dl (32-36); Mean Corpuscular Hemoglobin 28.4 pg (26-34); Mean Corpuscular Volume 83.6 fl (80-100); Mean Platelet Volume 8.9 fl (7.4-10.4); Monocytes Absolute Auto 0.3 K/mm3 (0.1-0.6); Monocytes Percent Auto 7.4 % (2.6-8.5); Neutrophils Absolute Auto 2.9 K/mm3 (1.3-6.7); Neutrophils Percent Auto 64.9 % (45.5-73.1); Platelet Count Result 132 k/mm3 (150-375); Red Blood Count 5.36 M/mm3 (4.6-6.20); Red Cell Distribution Width 12.8 % (11.5-14.5); White Blood Count 4.5 K/mm3 (4.5-10.0)
[2024-08-05 10:27] LABS: Blood Urea Nitrogen 13 mg/dL (8-26); Carbon Dioxide 26 mmol/L (22-30); Chloride 101 mmol/L (98-109); Estimated Glomerular Filt Rate > 60; Glucose 93 mg/dL (70-105); Ionized Calcium (POC) 1.24 mmol/L (1.11-1.31); Potassium 4.3 mmol/L (3.5-4.9); Sodium 139 mmol/L (138-146)
--- OUTSIDE RECORDS SUMMARY | 2024-08-05 11:38 | XMS_ITS | Encounter Summary ---
Author Organization [facility] [employer] [facility] Address [address] [place] [address] Care Team Providers Care Ampoule Inspector Name Role Phone Tomi Domínguez DO Primary Care Provider Reason for Visit * Reason Comments Follow Up Encounter Details Date Type Department Care Team (Late st Contact Info) Description 08/05/2024 10:00 AM CDT Office Visit [facility] Oncology and Hematology - [place] [address] [facility] [address] [place] [address] John Carlson MD [address] [facility] [address] [place] [address] Retroperitoneal lymphadenopathy (Primary Dx) Social History Tobacco Use Types Packs/Day Years Used Date Smoking Tobacco: Never Smokeless Tobacco: Never Tobacco Cessation:Counseling Given: Not Answered Alcohol Use Standard Drinks/Week Comments Yes 0 (1 standard drink = 0.6 oz pur e alcohol) occasionlly Sex and Gender Information Value Date Recorded Sex Assigned at Not on file Legal Sex Male 11:43 PM CDT Gender Identity Not on file Sexual Orientation Not on file documented as of this encounter Last Filed Vital Signs Vital Sign Reading Time Taken Comments Blood Pressure 115/71 08/05/2024 10:25 AM CDT Pulse 64 08/05/2024 10:25 AM CDT Temperature 35.9 C (96.6 F) 08/05/2024 10:25 AM CDT Respiratory Rate 17 08/05/2024 10:25 AM CDT Oxygen Saturation 97% 08/05/2024 10:25 AM CDT Inhaled Oxygen Concentration - - Weight 86.2 kg (190 lb) 08/05/2024 10:25 AM CDT Height - - Body Mass Index 25.77 09/10/2020 11:54 AM CDT documented in this encounter Progress Notes * John Carlson MD - 08/05/2024 10:54 AM CDT HEMATOLOGY / ONCOLOGY PROGRESS NOTE Patient Identification: Name: Sanjay Bell Age: 44 y.o. Sex: male : 1980 DIAGNOSIS Splenomegaly and retroperitoneal lymphadenopathy CURRENT TREATMENT Surveillance TREATMENT HISTORY SUBJECTIVE Patient came to the office for follow-up visit. He denies any night sweats fever chills and weight loss. No bleeding and bruising. No chest pain and shortness of breath. No other new complaints. Review of system Constitutional: denies fevers, sweats, denies any tiredness and fatigue, 12 pound weight gain HEENT: denies sinus congestion, hearing or vision problems Respiratory: denies cough, dyspnea, wheeze Cardiovascular: denies chest pain, exertional chest pressure/discomfort, nausea, syncope, shortnessof breath GI: denies constipation, diarrhea, dsyphagia, reflux symptoms, vomiting, melena, occasional left lower quadrant discomfort : denies dysuria, frequency, incontinence, urgency Integumentary system: no lymphadenopathy, sweats, flushing Musculoskeletal: denies: myalgia, arthralgia Neurological: denies blurry or disturbed vision, numbness/weakness, dizziness Skin: No lumps, bumps or rashes. 12 point review of system was reviewed Objective: Vital signs in last 24 hours: As per nursing note Exam: General appearance: alert, cooperative, no distress, appears stated age Head: normocephalic, without obvious abnormality, atraumatic Eyes: conjunctivae/corneas clear, EOM's intact Ears: normal external ear canals AU Nose: Nares normal. Septum midline. Mucosa normal. No drainage or sinus tenderness Throat: Lips, mucosa, and tongue normal. Teeth and gums normal Neck: supple, symmetrical, trachea midline. Lungs: clear to auscultation bilaterally Heart: regular rate and rhythm, S1, S2 normal, no murmur, click, rub or gallop Abdomen: soft, non-tender. Bowel sounds normal. No masses, No organomegaly Extremities: extremities normal, atraumatic, no cyanosis or edema Skin: Skin color, texture, turgor normal. No rashes or lesions Lymph nodes: No lymphadenopathy Neuro: No obvious focal deficit Exam as above PATH LABS Labs from March 11, 2020 showed WBC 4.5 hemoglobin 14.7 platelet 134,000 neutrophils 64% lymphocyte 23% sedimentation rate 6 C-reactive protein less than 0.5 LDH 355 creatinine 1.0 total bilirubin 0.5 Labs from June 03 showed WBC 4.0 hemoglobin 15.2 platelet 126,000 creatinine 1.1 Labs from August 02 showed WBC 3.8 hemoglobin 15.8 platelet 1 29,000 creatinine 1.3 Labs from August 05 showed creatinine 1.2 WBC 4.5 hemoglobin 15.2 platelet 132,000 neutrophils 64% lymphocyte 24% @IMAGEIMP@ Assessment: Plan: Patient Active Problem List Diagnosis Date Noted Retroperitoneal lymphadenopathy 02/18/2020 Splenomegaly 02/18/2020 Splenomegaly with retroperitoneal lymphadenopathy and thrombocytopenia. CT scan done on March 09showed resolution of mesenteric and retroperitoneal lymphadenopathy which is likely reactive. Spleen remains enlarged but smaller and now measures 15 cm compared to 15.3 cm. Flow cytometric analysis showed no evidence of leukemia lymphoma. EBV serology showed past infection. Patient is clinically asymptomatic. On my examination there is no evidence of lymphadenopathy. He has no B symptoms. Weight and appetite stable. Labs stable. Platelet count remains slightly low due to enlarged spleen. I will continue to see him back on yearly basis. He will contact us if he develops any B symptoms or enlarged lymph nodes. 08/05/2024 John Carlson MD documented in this encounter Plan of Treatment Upcoming Encounters Date Type Department Care Team (Late st Contact Info) Description 08/05/2025 11:00 AM CDT Office Visit [facility] Oncology and Hematology - [place] [address] [facility] [address] [place] [address] John Carlson MD [address] [facility] [address] [place] [address] Scheduled Orders Name Type Priority Associated Diagnoses Orde r Schedule CBC WITHOUT DIFFERENTIAL Lab Stat Retroperitoneal lymphadenopathy Expected: 08/05/2025, Expires: 08/05/2025 COMPREHENSIVE METABOLIC PANEL Lab Stat Retroperitoneal lymphadenopathy Expected: 08/05/2025, Expires: 08/05/2025 documented as of this encounter Visit Diagnoses Diagnosis Retroperitoneal lymphadenopathy- Primary Enlargement of lymph nodes documented in this encounter Care Teams Ampoule Inspector Relationship Specialty Start Date End Date Tomi Domínguez DO [address] [phone] PCP - General Internal Medicine 01/09/20 documented as of this encounter
--- OUTSIDE RECORDS SUMMARY | 2024-08-05 11:39 | XMS_ITS | Patient Health Summary ---
Author Organization [facility] Address [address] [place] [address] Care Team Providers Care Hand Picker Name Role Phone Kimberly Domínguez DO Primary Care Provider [phone] Note from [facility],non-owned Affiliates and Associated Physician Practices is amultiple site organization consisting of ambulatory clinics and hospital sitesin [place], [place], [place] and [place]. This disclosure is being madepursuant to the Care Everywhere program and may not contain all information available regarding this patient. Last updated 18.[facility] Allergies * Cefaclor Medications Be aware that medications may not be up to date on this document. Always verify current medications with the patient. No known medications Active Problems Problem Noted Date Diagnosed Date Shingles 06/18/2013 Social History Tobacco Use Types Packs/Day Years Used Date Smoking Tobacco: Never Alcohol Use Standard Drinks/Week Comments Not Asked 0 (1 standard drink = 0.6 oz pur e alcohol) Sex and Gender Information Value Date Recorded Sex Assigned at Not on file Gender Identity Not on file Sexual Orientation Not on file Last Filed Vital Signs Vital Sign Reading Time Taken Comments Blood Pressure - - Pulse 79 06/18/2013 12:46 PM BILLING MANAGER Temperature 36.7 C (98 F) 06/18/2013 12:46 PM BILLING MANAGER Respiratory Rate 16 06/18/2013 12:46 PM BILLING MANAGER Oxygen Saturation 99% 06/18/2013 12:46 PM BILLING MANAGER Inhaled Oxygen Concentration - - Weight 96.2 kg (212 lb) 06/18/2013 12:46 PM BILLING MANAGER Height 182.9 cm (6') 06/18/2013 12:46 PM BILLING MANAGER Body Mass Index 28.75 06/18/2013 12:46 PM BILLING MANAGER Procedures * GROSS + MICRO EXAM(Performed 12/22/2005) * GROSS + MICRO EXAM(Performed 02/20/2003) Results * GROSS + MICRO EXAM (12/22/2005 10:30 AM CDT) Only the most recent of2 resultswithin the time period is included. Result CASE NUMBER [id number] Comment: ORDERING PHYSICIAN KIMBERLY PERRY SPECIMEN TYPE Appendix-Testis, Left Date of Surgery 12/22/[address] Perry SPECIMEN SOURCE Appendix, left testis. *Pre Op Dx A [age] year old male has epididymitis-orchitis of the left testicle. Findings at operation an appendix testis. GROSS DESCRIPTION A rivas-brown soft piece of tissue is 0.2 x 0.1 x 0.1 cm. Totally submitted. Grossed by JAMAR GARRIDO M.D. *MICROSCOPIC EXAM The specimen consists of a polypoid piece of epididymis. Read by JAMAR GARRIDO M.D. DIAGNOSIS LEFT TESTIS, BIOPSIES - APPENDIX EPIDIDYMIS. RELEASED BY JAMAR GARRIDO MISCELLANEOUS SAMPLES / Unknown 12/22/2005 10:30 AM CDT 12/22/2005 11:26 AM CDT Historical Provider LAB - PATHOLOGY/C YTOLOGY ORDERABLES Care Teams Hand Picker Relationship Specialty Start Date End Date Kimberly Domínguez DO PCP - General 04/06/20
--- OUTSIDE RECORDS SUMMARY | 2024-08-05 11:39 | XMS_ITS | Referral Summary ---
Author Organization [facility] Address [address] [place] [address] Care Team Providers Care Leadership Program Intern Name Role Phone Tomi Domínguez DO Primary Care Provider Source Comments [facility],non-owned Affiliates and Associated Physician Practices is amultiple site organization consisting of ambulatory clinics and hospital sitesin [place], [place], [place] and [place]. This disclosure is being madepursuant to the Care Everywhere program and may not contain all information available regarding this patient. Last updated 18.[facility] Allergies Active Allergy Reactions Criticality Noted Date Comments Cefaclor 06/18/2013 Medications Be aware that medications may not [...] - - Pulse 79 06/18/2013 12:46 PM JOURNEYMAN MOLDER Temperature 36.7 C (98 F) 06/18/2013 12:46 PM JOURNEYMAN MOLDER Respiratory Rate 16 06/18/2013 12:46 PM JOURNEYMAN MOLDER Oxygen Saturation 99% 06/18/2013 12:46 PM JOURNEYMAN MOLDER Inhaled Oxygen Concentration - - Weight 96.2 kg (212 lb) 06/18/2013 12:46 PM JOURNEYMAN MOLDER Height 182.9 cm (6') 06/18/2013 12:46 PM JOURNEYMAN MOLDER Body Mass Index 28.75 06/18/2013 12:46 PM JOURNEYMAN MOLDER Plan of Treatment Not on file Care Teams Leadership Program Intern Relationship Specialty Start Date End Date Tomi Domínguez DO PCP - General 04/06/20
--- OUTSIDE RECORDS SUMMARY | 2024-08-05 11:39 | XMS_ITS | Clinical Summary ---
Author Organization [facility] Address [address] [place] [address] Care Team Providers Care Conduit Reamer Operator Name Role Phone Tomi Domínguez DO Primary Care Provider [phone] Source Comments [facility],non-owned Affiliates and Associated Physician Practices is amultiple site organization consisting of ambulatory clinics and hospital sitesin [place], [place], [place] and [place]. This disclosure is being madepursuant to the Care Everywhere program and may not contain all information available regarding this patient. Last updated 18.[facility] Allergies Active Allergy Reactions Criticality Noted Date Comments Cefaclor 06/18/2013 Medications Be aware that medications may not be up to date on this document. Always verify current medications with the patient. No known medications Active Problems Problem Noted Date Diagnosed Date Shingles 06/18/2013 Family History Medical History Relation Name Comments Cancer - Other Father thyroid cance r Relation Name Status Comments Father Social History Tobacco Use Types Packs/Day Years [...] - - Pulse 79 06/18/2013 12:46 PM NON PROFIT FINANCIAL CONTROLLER Temperature 36.7 C (98 F) 06/18/2013 12:46 PM NON PROFIT FINANCIAL CONTROLLER Respiratory Rate 16 06/18/2013 12:46 PM NON PROFIT FINANCIAL CONTROLLER Oxygen Saturation 99% 06/18/2013 12:46 PM NON PROFIT FINANCIAL CONTROLLER Inhaled Oxygen Concentration - - Weight 96.2 kg (212 lb) 06/18/2013 12:46 PM NON PROFIT FINANCIAL CONTROLLER Height 182.9 cm (6') 06/18/2013 12:46 PM NON PROFIT FINANCIAL CONTROLLER Body Mass Index 28.75 06/18/2013 12:46 PM NON PROFIT FINANCIAL CONTROLLER Plan of Treatment Health Maintenance Due Date Last Done Comments LIPID TESTING 1981 HIV SCREENING 1996 HEPATITIS C SCREENING 05/03/1999 DTAP/TDAP/TD VACCINES (1 - Tdap) 2000 HEPATITIS B VACCINE (1 of 3 - 19+ 3-dose series) 2000 COVID-19 VACCINE (1 - 2023-2 5 season) 2024 INFLUENZA VACCINE (#1) 2024 DEPRESSION SCREENING 05/22/2024 ZOSTER VACCINE (1 of 2) 2031 HIB VACCINE Aged Out No longer eligi ble based on patient's age to complete this topic HPV VACCINE Aged Out No longer eligi ble based on patient's age to complete this topic MENINGOCOCCAL (Group B) VACC INE SHARED DECISION-MAKING Aged Out No longer eligibl e based on patient's age to complete this topic MENINGOCOCCAL GROUPS A/C/Y/W VACCINE Aged Out No longer eligible b ased on patient's age to complete this topic PNEUMOCOCCAL VACCINE Aged Out No long er eligible based on patient's age to complete this topic Care Teams Conduit Reamer Operator Relationship Specialty Start Date End Date Tomi Domínguez DO PCP - General 04/06/20
--- OUTSIDE RECORDS SUMMARY | 2024-08-05 11:39 | XMS_ITS | Clinical Summary ---
Author Organization [facility] Address [address] [place] [address] Care Team Providers Care Area Development Manager Name Role Phone Chuck Manuel MD Primary Care Provider [phone] Allergies Active Allergy Reactions Criticality Noted Date Comments Amoxicillin Rash Low 10/12/2022 Cefaclor Rash Low 10/03/2020 Medications hydrocortisone 2.5 % cream Apply topically 4 (four) times daily. Apply to hemorrhoids Active multi vitamin/mineral s tablet Take 2 tablets by mouth daily. GNC multi-vitamin Active psyllium 51.7 % packet Take 1 packet by mouth 3 (three) times daily. Active HYDROcodone-nara taminophen (NORCO) 5-325 MG tabletIndicatio ns:Acute Pain < 7 Day Supply Take 1 tablet by mouth every 6 (six) hours as needed. Indications: Acute Pain < 7 Day Supply 16 tablet Active Social History Tobacco Use Types Packs/Day Years Used Date Smoking Tobacco: Never Smokeless Tobacco: Never Tobacco Cessation:Counseling Given: Not Answered Alcohol Use Standard Drinks/Week Comments Yes 0 (1 standard drink = 0.6 oz pur e alcohol) occasionally Sex and Gender Information Value Date Recorded Sex Assigned at Not on file Legal Sex Male 11:12 AM CDT Gender Identity Not on file Sexual Orientation Not on file Last Filed Vital Signs Vital Sign Reading Time Taken Comments Blood Pressure 114/68 10/12/2022 8:34 PM CDT Pulse 76 10/12/2022 8:34 PM CDT Temperature 36.7 C (98 F) 10/12/2022 8:34 PM CDT Respiratory Rate 18 10/12/2022 8:34 PM CDT Oxygen Saturation 99% 10/12/2022 8:34 PM CDT Inhaled Oxygen Concentration - - Weight 83.2 kg (183 lb 6.8 oz) 10/12/2022 8:34 P M CDT Height 182.9 cm (6') 10/12/2022 8:34 PM CDT Body Mass Index 24.88 10/12/2022 8:34 PM CDT Plan of Treatment Health Maintenance Due Date Last Done Comments Annual Physical 1984 Hepatitis C 1999 DTaP, Tdap and Td Vaccines ( 1 - Tdap) 2000 Hepatitis B Vaccines (1 of 3 - 19+ 3-dose series) 2000 COVID-19 Vaccine ( - 2023-2 5 season) 2024 Influenza Adult (#1) 2024 HPV Vaccines Aged Out No longer eligi ble based on patient's age to complete this topic Meningococcal B Vaccine Aged Out No l onger eligible based on patient's age to complete this topic Meningococcal Vaccine Aged Out No dillon earlene eligible based on patient's age to complete this topic Pneumococcal Vaccine: Pediat rics (0 to 5 Years) and At-Risk Patients (6 to 64 Years) Aged Out No longer eligible b ased on patient's age to complete this topic RSV Immunizations Under 20 Months Aged Out No longer eligible based on patient's age to complete this topic Insurance [facility] Care Teams Area Development Manager Relationship Specialty Start Date End Date Chuck Manuel MD [address] [place] [address] [place] [phone] PCP - General CARDIOVASCULAR DISEASE 10/03/20
--- OUTSIDE RECORDS SUMMARY | 2024-08-05 11:39 | XMS_ITS | Clinical Summary ---
[facility] Address [address] [place] [address] Care Team Providers Care Technical Professional Name Role Phone Tomi Domínguez DO Primary Care Provider Allergies Active Allergy Reactions Criticality Noted Date Comments Cefaclor Rash Low 06/18/2013 Medications No known medications Active Problems Problem Noted Date Diagnosed Date Retroperitoneal lymphadenopathy 02/18/2020 Splenomegaly 02/18/2020 Encounters Date Type Department Care Team Description 08/05/2024 10:00 AM CDT Office Visit [facility] Oncology and Hematology - [place] [address] [facility] [address] [place] [phone] John Carlson MD Retroperitoneal lymphadenopathy (Primary Dx) 07/16/2024 External Device Data STL ABSTRACTION Provider, Abstract 06/25/2024 External Device Data STL ABSTRACTION Provider, Abstract 06/11/2024 External Device Data STL ABSTRACTION Provider, Abstract from Last 3 Months Family History Medical History Relation Name Comments Diabetes Brother Healthy Daughter Cancer Father Healthy Mother Healthy Son Relation Name Status Comments Brother Alive Daughter Alive Father Alive Mother Alive Son Alive Social History Tobacco Use Types Packs/Day Years [...] (190 lb) 08/05/2024 10:25 AM CDT Height 182.9 cm (6') 09/10/2020 11:54 AM CDT Body Mass Index 25.77 09/10/2020 11:54 AM CDT Plan of Treatment Upcoming Encounters Date Type Department Care Team (Late st Contact Info) Description 08/05/2025 11:00 AM CDT Office Visit [facility] On[facility] Hematology - [place] [address] [facility] [address] [place] [address] John Carlson MD [address] [facility] [address] [place] [address] Health Maintenance Due Date Last Done Comments DTAP/TDAP/TD VACCINES (1 - Tdap) 2000 HEPATITIS B VACCINES (1 of 3 - 19+ 3-dose series) 2000 INFLUENZA VACCINE (#1) 2023 05/01/2017 HPV VACCINES Aged Out No longer eligi ble based on patient's age to complete this topic Care Teams Technical Professional Relationship Specialty Start Date End Date Tomi Domínguez DO [address] [facility] [address] [place] [address] PCP - General Internal Medicine 01/09/20
[2024-08-05 12:06] LABS: Alanine Aminotransferase 42 U/L (6-50); Albumin Level 4.6 g/dL (3.5-5.1); Alkaline Phosphatase 45 U/L (38-126); Anion Gap 8 mmol/L (4-12); Aspartate Amino Transferase 30 U/L (17-59); Bilirubin,Total 0.8 mg/dL (0.2-1.3); Blood Urea Nitrogen 13 mg/dL (9-20); Calcium 9.6 mg/dL (8.4-10.2); Carbon Dioxide 28 mmol/L (22-30); Chloride 102 mmol/L (98-107); Estimated Glomerular Filt Rate > 60; Glucose 93 mg/dL (65-110); Lactate Dehydrogenase 150 U/L (120-246); Potassium 4.3 mmol/L (3.4-5.0); Sodium 138 mmol/L (137-145)
== END 2024-08-05 10:08 | disposition home or self-care (01) ==
LOC: ANHLAB 10:08
PROVIDERS: PCP Internal Medicine; Visit Provider Internal Medicine Hematology & Oncology
DX: R59.0 Localized enlarged lymph nodes (principal)
CPT/HCPCS: 36415; 80047; 80053; 83615; 85025; 85055

== ENCOUNTER 2025-01-21 11:30 | Outpatient (CLI) | payer OTHER, SELFPAY ==
--- NOTE | ~2025-01-21 | US_ITS ---
EXAMINATION: US soft tissue LE RT DATE: 01/21/2025 11:53 INDICATION: Pain and palpable abnormality at the anterior right upper thigh TECHNIQUE: Multiple grayscale and Doppler ultrasound images of the region of concern at the anterior right upper thigh were obtained. COMPARISON: None FINDINGS: There is a 4.2 x 2.3 x 1.0 cm anechoic fluid collection along the distal margin of one of the quadriceps muscles at the anterior thigh. Based upon the anatomy the surrounding muscles on the transverse imaging suspected cysts the rectus femoris anterior to the vastus intermedius muscle. There is a rounded distal margin to the muscle belly which suggests tendon tear and proximal retraction. On the sagittal images there appears to be disorganized lax appearance to the muscle fibers. IMPRESSION: 1. Small anechoic fluid collection likely hematoma at the distal margin of which appears be the torn and retracted distal margin of what is likely the rectus femoris belly. Could consider further evaluation with MRI as clinically indicated. Reviewed, dictated and finalized at location A. IMPRESSION: 1. Small anechoic fluid collection likely hematoma at the distal margin of whic h appears be the torn and retracted distal margin of what is likely the rectus femoris belly. Could consider further evaluation with MRI as clinically indicat ed.
== END 2025-01-21 11:31 | disposition home or self-care (01) ==
LOC: MICIMG 11:31
PROVIDERS: PCP Internal Medicine
DX: M79.651 Pain in right thigh (principal)
CPT/HCPCS: 76882

== ENCOUNTER 2025-04-11 08:52 | Outpatient (CLI) | payer OTHER, SELFPAY ==
--- NOTE | ~2025-04-11 | MR_ITS ---
EXAMINATION: [id number] DATE: 04/11/2025 09:53 INDICATION: Abnormal findings on diagnostic imaging planes. TECHNIQUE: Magnetic resonance imaging (MRI) of the right thigh/femur from the hip to the knee was performed without and with 17 mL Multihance intravenous contrast. A marker was placed over the mass. Sequences included axial T1- weighted FSE, axial T2-weighted FS FSE, coronal T1-weighted FSE, coronal T2- weighted FS FSE, sagittal T1-weighted FSE and sagittal T2-weighted FS FSE. Precontrast axial T1-weighted FS FSE and post contrast axial, sagittal and coronal T1-weighted FS FSE were also obtained. The contralateral left thigh is included on the coronal images. COMPARISON: Ultrasound dated 01/21/2025 FINDINGS: There is feathery muscular edema throughout the mid to distal right rectus femoris muscle. There is a tear of the tendon with the thickened proximal tear margin is located immediately deep to the marker indicating the apical abnormality of concern. The thickened distal tear margin is located 11 cm more distally, 10 cm proximal to the patellar insertion of the tendon. The distal margin of the rectus femoris muscle belly is centered between the retracted proximal and distal tendon tear margins. Remaining musculature and tendons of the bilateral thighs appears normal and symmetric. There is a 2.6 cm T2 hyperintense lesion in the subtrochanteric proximal left femur which is seen only on the coronal sequences. The lesion remains T1 hyperintense relative to skeletal muscle. The lesion appears to demonstrate some enhancement however definitive assessment is limited by the absence of precontrast imaging of this location. Bone marrow signal is otherwise normal throughout. IMPRESSION: 1. Likely full-thickness tear along the distal myotendinous junction of the right rectus femoris muscle with up to 11 cm proximal retraction. 2. Indeterminate 2.6 cm T2 hyperintense lesion at the subtrochanteric proximal left femur. The still relatively high T1 signal intensity favors a benign etiology such as focal red marrow reexpansion or hemangioma. Recommend radiographs of the proximal left femur for correlation and could also consider bone scan particularly if there is known history of prior malignancy. Reviewed, dictated and finalized at location A. ERY HAND IMPRESSION: 1. Likely full-thickness tear along the distal myotendinous junction of the rig ht rectus femoris muscle with up to 11 cm proximal retraction. 2. Indeterminate 2.6 cm T2 hyperintense lesion at the subtrochanteric proximal left femur. The still relatively high T1 signal intensity favors a benign etiol ogy such as focal red marrow reexpansion or hemangioma. Recommend radiographs o f the proximal left femur for correlation and could also consider bone scan par ticularly if there is known history of prior malignancy.
--- OUTSIDE RECORDS SUMMARY | 2025-04-11 09:00 | XMS_ITS | Clinical Summary ---
[facility] Address [address] [place] [address] Care Team Providers Care Building Components Designer Name Role Phone Tomi Domínguez DO Primary Care Provider Allergies Active Allergy Reactions Criticality Noted Date Comments Cefaclor Rash Low 06/18/2013 Medications No known medications Active Problems Problem Noted Date Diagnosed Date Retroperitoneal lymphadenopathy 02/18/2020 Splenomegaly 02/18/2020 Encounters Date Type Department Care Team Description 03/25/2025 External Device Data STL ABSTRACTION Provider, Abstract 03/18/2025 External Device Data STL ABSTRACTION Provider, Abstract 03/11/2025 External Device Data STL ABSTRACTION Provider, Abstract [...] [facility] - [place] [address] [facility] [address] [place] [address] John Carlson MD [address] [facility] [address] [place] [address] Health Maintenance Due Date Last Done Comments Pre-Diabetes and Diabetes Screening 1981 DTAP/TDAP/TD VACCINES (1 - Tdap) 2000 HEPATITIS B VACCINES (1 of 3 - 19+ 3-dose series) 04/21 HPV VACCINES (1 - 3-dose SCDM series) 2008 INFLUENZA VACCINE (#1) 2024 05/01/2017 Care Teams Building Components Designer Relationship Specialty Start Date End Date Tomi Domínguez DO [address] [facility] [address] [place] [address] PCP - General Internal Medicine 01/09/20
--- OUTSIDE RECORDS SUMMARY | 2025-04-11 09:00 | XMS_ITS | Clinical Summary ---
Author Organization [facility] Address [address] [place] [address] Care Team Providers Care Airborne Sensor Specialist Name Role Phone Chuck Manuel MD Primary Care Provider [phone]- [phone] Allergies Active Allergy Reactions Criticality Noted Date [...] of 3 - 19+ 3-dose series) 2000 HPV Vaccines (1 - 3-dose SCD M series) 2008 COVID-19 Vaccine ( - 2024-2 6 season) 2025 Influenza Adult (#1) 2025 Hepatitis A Vaccines Aged Out No long er eligible based on patient's age to complete this topic Meningococcal B Vaccine Aged Out No l onger eligible based on patient's age to complete this topic Meningococcal Vaccine Aged Out No dillon earlene eligible based on patient's age to complete this topic Pneumococcal Vaccine: Pediat rics (0 to 5 Years) and At-Risk Patients (6 to 49 Years) Aged Out No longer eligible b ased on patient's age to complete this topic RSV Immunizations Under 20 Months Aged Out No longer eligible based on patient's age to complete this topic Insurance [facility] Care Teams Airborne Sensor Specialist Relationship Specialty Start Date End Date Chuck Manuel MD [address] [facility] [address] [place] [address] [place] [phone] PCP - General CARDIOVASCULAR DISEASE 10/03/20
--- OUTSIDE RECORDS SUMMARY | 2025-04-11 09:00 | XMS_ITS | Clinical Summary ---
Author Organization [facility] Address [address] [place] [address] Care Team Providers Care Bridge Club Manager Name Role Phone Tomi Domínguez DO Primary Care Provider [phone] Source Comments [facility],non-owned Affiliates and Associated Physician Practices is amultiple site organization consisting of ambulatory clinics and hospital sitesin [place], [place], [place] and [place]. This disclosure is being madepursuant to the Care Everywhere program and may not contain all information available regarding this patient. Last updated 18.[email or web address] Allergies Active Allergy Reactions Criticality Noted Date Comments Cefaclor 06/18/2013 Medications * Be aware that medications may not be up to date on this document. Alwaysverify current medications with the patient. No known [...] at Not on file Legal Sex Male 3:53 AM TRANSPORTATION DISPATCH MANAGER Gender Identity Not on file Sexual Orientation Not on file Last Filed Vital Signs Vital Sign Reading Time Taken Comments Blood Pressure - - Pulse 79 06/18/2013 12:46 PM TRANSPORTATION DISPATCH MANAGER Temperature 36.7 C (98 F) 06/18/2013 12:46 PM TRANSPORTATION DISPATCH MANAGER Respiratory Rate 16 06/18/2013 12:46 PM TRANSPORTATION DISPATCH MANAGER Oxygen Saturation 99% 06/18/2013 12:46 PM TRANSPORTATION DISPATCH MANAGER Inhaled Oxygen Concentration - - Weight 96.2 kg (212 lb) 06/18/2013 12:46 PM TRANSPORTATION DISPATCH MANAGER Height 182.9 cm (6') 06/18/2013 12:46 PM TRANSPORTATION DISPATCH MANAGER Body Mass Index 28.75 06/18/2013 12:46 PM TRANSPORTATION DISPATCH MANAGER Plan of Treatment Health Maintenance Due Date Last Done Comments LIPID TESTING 1981 HIV SCREENING 1996 HEPATITIS C SCREENING 05/03/1999 DTAP/TDAP/TD VACCINES (1 - Tdap) 2000 HEPATITIS B VACCINE (1 of 3 - 19+ 3-dose series) 2000 HPV VACCINE (1 - 3-dose SCDM series) 2008 DEPRESSION SCREENING 05/22/2024 COVID-19 VACCINE (1 - 2024-2 6 season) 2025 INFLUENZA VACCINE (#1) 2025 ZOSTER VACCINE (1 of 2) 2031 HIB [...] patient's age to complete this topic Insurance [facility] Care Teams Bridge Club Manager Relationship Specialty Start Date End Date Tomi Domínguez DO PCP - General 04/06/20
== END 2025-04-11 08:53 | disposition home or self-care (01) ==
PROVIDERS: PCP Internal Medicine; Visit Provider Clinical Nurse Specialist
DX: R93.6 Abnormal findings on diagnostic imaging of limbs (principal); S76.811D Strain of other specified muscles, fascia and tendons at thigh level, right thigh, subsequent encounter; X58.XXXD Exposure to other specified factors, subsequent encounter
CPT/HCPCS: 73720; A9577

== ENCOUNTER 2025-04-14 12:52 | Outpatient (CLI) | payer OTHER, SELFPAY ==
--- NOTE | ~2025-04-14 | XR_ITS ---
EXAMINATION: XR femur RT min 2V, 04/14/2025 13:01 REINFORCING IRON WORKER HELPER HISTORY: Running injury in november, phone hit inner upper leg while run COMPARISON: No comparisons available. Findings: No acute fracture or malalignment. No significant degenerative changes. Soft tissues unremarkable. Impression: No acute fracture or malalignment. Reviewed, dictated and finalized at location P. FORCING IRON WORKER HELPER Impression: No acute fracture or malalignment.
== END 2025-04-14 12:53 | disposition home or self-care (01) ==
LOC: GOSHIMG 12:52
PROVIDERS: PCP Clinical Nurse Specialist; Visit Provider Clinical Nurse Specialist
DX: S79.921A Unspecified injury of right thigh, initial encounter (principal); R93.6 Abnormal findings on diagnostic imaging of limbs; X58.XXXA Exposure to other specified factors, initial encounter
CPT/HCPCS: 73552